=== PATIENT | female | born 1960 | race Caucasian/White ===

== ENCOUNTER → 2022-11-01 | Outpatient (CLI) | payer BC ==
[2022-11-01 16:18] LABS: LDL Cholesterol,Calculated 169.2 mg/dL (0.0-131.0); VLDL Calculation 12.84 mg/dL (5.00-40.00)
[2022-11-01 16:20] LABS: ALT 23 U/L (8-44); AST 29 U/L (13-35); African American GFR (CKD) 78.3 (60.0-200.0); Albumin 4.3 g/dL (3.8-4.9); Albumin/Globulin Ratio 1.65 (1.60-3.17); Alkaline Phosphatase 55 U/L (41-126); BUN/Creat Ratio 21.67 Ratio (12.00-20.00); Blood Urea Nitrogen 19.5 mg/dL (9.0-27.0); Calcium 10.1 mg/dL (8.7-10.3); Carbon Dioxide 22.4 mmol/L (20.0-27.5); Chloride 104 mmol/L (96-109); Globulin 2.6 g/dL (1.6-3.3); Glucose 91 mg/dL (70-110); Non-African American GFR(CKD) 67.6 (60.0-200.0); Sodium 140 mmol/L (135-145); Total Protein 6.9 g/dL (6.2-8.2)
== END | disposition home or self-care (01) ==
LOC: LABWHC1 09:49
PROVIDERS: ATTEND Internal Medicine
DX: E78.5 Hyperlipidemia, unspecified (principal)
CPT/HCPCS: 36415; 80053; 80061

== ENCOUNTER → 2022-11-08 | Outpatient (CLI) | payer BC ==
--- NOTE | 2022-11-08 10:40 | BD ---
EXAMINATION TYPE: Axial Bone Density DATE OF EXAM: 11/08/2022 CLINICAL HISTORY: 62 years old Female. ICD-10 CODE: M81.0 AGE RELATED OSTEOPOROSIS, Z29.9 PREVENTATI VE MEASURES Height: 4 ft 11 1/2 in Weight: 156 FRAX RISK QUESTIONS: Alcohol (3 or more units per day): no Family History (Parent hip fracture): no Glucocorticoids (More than 3mos): no (Ex: prednisone, prednisolone, methylprednisolone, dexamethasone, and hydrocortisone). History of Fracture in Adulthood: yes Secondary Osteoporosis: 1. Type 1 Diabetes: no 2. Hyperthyroidism: no 3. Menopause before 45: no 4. Malnutrition: no 5. Chronic liver disease: no Rheumatoid Arthritis: no Current Tobacco Use: no RISK FACTORS HISTORY OF: Surgery to Spine/Hip(right/left)/Wrist (right/left): no Family History of Osteoporosis: no Active: yes Diet low in dairy products/other sources of calcium: no Postmenopausal woman: yes Take estrogen and/or progesterone medications: no Lost more than 2 inches in height since high school: no Frequent falls: no Poor Health: good Hyperparathyroidism: no Adrenal Insufficiency: no MEDICATIONS: Additional Medications: none Additional History: EXAM MEASUREMENTS: Bone mineral densitometry was performed using the [employer] System. Bone mineral density as measured about the Lumbar spine is: ----- L1-L4(G/cm2): 1.550 T Score Values are as follows: ----- L1: 1.6 ----- L2: 2.7 ----- L3: 4.1 ----- L4: 3.6 ----- L1-L4: 3.1 Z Score Values are as follows: ----- L1: 3.0 ----- L2: 4.0 ----- L3: 5.5 ----- L4: 4.9 ----- L1-L4: 4.4 baseline Bone mineral density about the R hip (g/cm2): 0.773 Bone mineral density about the L hip (g/cm2): 0.809 T Score values are as follows: -----R Neck: -1.9 -----L Neck: -1.7 -----R Total: -0.9 -----L Total: -0.7 Z Score values are as follows: -----R Neck: -0.6 -----L Neck: -0.3 -----R Total: 0.1 -----L Total: 0.3 baseline FRAX%s: The graph provided illustrates a 16.3% chance for a major osteoporotic fx and a 2.3% chance f or the hips probability for fx in 10 years time. IMPRESSION: Osteopenia (T Score between -2.5 and -1). There is slightly increased risk of fracture and the patient may be considered for treatment. Re-Screen 2-5 years. NOTE: T-SCORE=SD OF THE YOUNG ADULT MEAN.
== END | disposition home or self-care (01) ==
LOC: RADBDWWP 08:29
PROVIDERS: ATTEND Internal Medicine
DX: M81.0 Age-related osteoporosis without current pathological fracture (principal); M85.89 Other specified disorders of bone density and structure, multiple sites; Z29.9 Encounter for prophylactic measures, unspecified
CPT/HCPCS: 77080

== ENCOUNTER → 2024-11-11 | Outpatient (CLI) | payer MEDICARE ==
[2024-11-11 15:00] LABS: ALT 19 U/L (8-44); AST 24 U/L (13-35); Albumin 4.3 g/dL (3.8-4.9); Albumin/Globulin Ratio 1.79 Ratio (1.60-3.17); Alkaline Phosphatase 64 U/L (41-126); BUN/Creat Ratio 16.56 Ratio (12.00-20.00); Blood Urea Nitrogen 14.9 mg/dL (9.0-27.0); Calcium 9.6 mg/dL (8.7-10.3); Carbon Dioxide 24.3 mmol/L (21.6-31.8); Chloride 104 mmol/L (96-109); Chol/HDL Ratio 2.76 Ratio; Globulin 2.4 g/dL (1.6-3.3); Glucose 92 mg/dL (70-110); LDL Cholesterol,Calculated 167.2 mg/dL (0.0-131.0); Potassium 4.2 mmol/L (3.5-5.5); Sodium 140 mmol/L (135-145); Total Bilirubin 0.6 mg/dL (0.3-1.2); Total Protein 6.7 g/dL (6.2-8.2); VLDL Calculation 13.82 mg/dL (5.00-40.00)
== END | disposition home or self-care (01) ==
LOC: LABWHC1 12:03
PROVIDERS: ATTEND Internal Medicine
DX: E78.5 Hyperlipidemia, unspecified (principal)
CPT/HCPCS: 36415; 80053; 80061

== ENCOUNTER → 2025-01-02 | Outpatient (CLI) | payer MEDICARE ==
--- NOTE | 2025-01-18 16:03 | BD ---
EXAMINATION TYPE: Axial Bone Density DATE OF EXAM: 01/05/2025 CLINICAL HISTORY: 64 years old Female. ICD-10 CODE: n95.9 menopausal , Additional History: Height: 59.5 Weight: 160 FRAX RISK QUESTIONS: Family History (Parent hip fracture): no History of Fracture in Adulthood: yes Secondary Osteoporosis: no RISK FACTORS HISTORY OF: Surgery to Spine/Hip(right/left)/Wrist (right/left): no MEDICATIONS: Thyroid Medications: no Osteoporosis Medications: no EXAM MEASUREMENTS: Bone mineral densitometry was performed using the [employer] System. Bone mineral density as measured about the Lumbar spine is: ----- L1-L4(G/cm2): 1.559 T Score Values are as follows: ----- L1: 1.5 ----- L2: 3.8 ----- L3: 3.1 ----- L4: 3.8 ----- L1-L4: 3.2 Z Score Values are as follows: ----- L1: 2.9 ----- L2: 5.2 ----- L3: 4.5 ----- L4: 5.3 ----- L1-L4: 4.6 Bone mineral density has: Increased 0.6% since study of: 11/08/2022 Bone mineral density about the R hip (g/cm2): 0.959 Bone mineral density about the L hip (g/cm2): 0.931 T Score values are as follows: -----R Neck: -1.4 -----L Neck: -1.1 -----R Total: -0.4 -----L Total: -0.6 Z Score values are as follows: -----R Neck: 0.0 -----L Neck: 0.3 -----R Total: 0.8 -----L Total: 0.5 Bone mineral density has: Increased 4.8% since study of: 11/08/2022 FRAX%s: The graph provided illustrates a 14.3% chance for a major osteoporotic fx and a 1.5% chance f or the hips probability for fx in 10 years time. IMPRESSION: Osteopenia (T Score between -2.5 and -1). There is slightly increased risk of fracture and the patient may be considered for treatment. Re-Screen 2-5 years. NOTE: T-SCORE=SD OF THE YOUNG ADULT MEAN. [facility], Workstation: [id number], 01/18/2025 4:00 PM
== END | disposition home or self-care (01) ==
LOC: RADBDWWP 10:26
PROVIDERS: ATTEND Internal Medicine
DX: Z29.9 Encounter for prophylactic measures, unspecified (principal); N95.9 Unspecified menopausal and perimenopausal disorder; M85.89 Other specified disorders of bone density and structure, multiple sites
CPT/HCPCS: 77080